=== PATIENT | female | born 1995 | race African-American/Black ===

== ENCOUNTER 2018-10-25 06:25 | Emergency (ER) | payer OTHER ==
[~2018-10-25] VITALS: Ht 167.6 cm; Wt 109.1 kg
[2018-10-25 06:30] VITALS: Ht 167.6 cm; Wt 109.1 kg
[2018-10-25] MEDS ORDERED: NORCO 5/325 TAB1 TAB PO (06:44)
[2018-10-25 07:04] VITALS: BP 119/71
== END 2018-10-25 07:05 | disposition home or self-care (01) ==
LOC: D.ER 06:25
DX: T22.111A Burn of first degree of right forearm, initial encounter (principal); X10.1XXA Contact with hot food, initial encounter; Y93.89 Activity, other specified; Y92.010 Kitchen of single-family (private) house as the place of occurrence of the external cause; F17.200 Nicotine dependence, unspecified, uncomplicated